=== PATIENT | male | born 2000 | race African-American/Black ===

== ENCOUNTER 2022-08-18 00:58 | Emergency (ER) | payer OTHER ==
[~2022-08-18] VITALS: Ht 172.7 cm; Wt 91.0 kg
[2022-08-18] MEDS ORDERED: TETANUS, DIPHTHERIA, PERTUSSIS VAC/PF 0.5ML (>10YR OLD) IM ONE (01:30)
[2022-08-18] MEDS ORDERED: CEFAZOLIN 1000MG PREMIX 50 ML IV ONE (01:30)
[2022-08-18] MEDS ORDERED: MORPHINE SULFATE 4 MG/ML CPJ (NOT FOR IM USE) IV ONE ×3 (01:30→08:00)
[2022-08-18 02:54] LABS: HEMATOCRIT 47.3 % (42.0-52.0); HEMOGLOBIN 16.1 g/dL (14.0-18.0); MEAN CORPUSCULAR HEMOGLOBIN 30.3 pg (28.0-32.0); MEAN CORPUSCULAR VOLUME 89.4 fL (80.0-94.0); PLATELET 298 x1000/uL (130-400); RED BLOOD CELL COUNT 5.29 mill/uL (4.7-6.1); RED CELL DISTRIBUTION WIDTH 13.1 % (11.6-14.6)
[2022-08-18 03:01] LABS: CHLORIDE 106 mEq/L (98-107)
[2022-08-18] MEDS ORDERED: HYDROMORPHONE HCL/PF 2MG/ML CPJ IV ONE (04:00)
[2022-08-18 08:17] VITALS: BP 126/71
== END 2022-08-18 08:47 | disposition short-term general hospital (02) ==
LOC: ER 00:58
DX: S61.412A Laceration without foreign body of left hand, initial encounter (principal); R58 Hemorrhage, not elsewhere classified; X99.1XXA Assault by knife, initial encounter; Y93.89 Activity, other specified; Y92.89 Other specified places as the place of occurrence of the external cause; Y99.8 Other external cause status
CPT/HCPCS: 12005; 36415; 73130; 80053; 85027; 86850; 86900; 86901; 90715; 96365; 96375; 96376; 99291; J0690; J1170; J2270; Z7610